=== PATIENT | female | born 1950 | race Caucasian/White ===

== ENCOUNTER → 2018-01-30 | Outpatient (CLI) | payer MEDICARE ==
[~2018-01-30] MED LIST: AMLO1CAP10 PO; ATOR-2 PO; BUPR300T4 PO; CALCIUM PO; CHOL2000 PO; HYDR25TA6 PO; JUICE PLUS PO; LACT1CAP43 PO; MULT-308 PO; NORCO PO; TEMA15CA PO
[2018-01-30 11:41] LABS: MICROSCOPIC NOT IND
[2018-01-30 11:44] LABS: CULTURE INDICATED? NO
[2018-01-30 11:45] LABS: BASOPHILS # (AUTO) 0.04 x10^3/uL (0-0.1); BASOPHILS % (AUTO) 1 % (0-1); EOSINOPHILS # (AUTO) 0.19 x10^3/uL (0-0.4); EOSINOPHILS % (AUTO) 4 % (1-7); LYMPHOCYTES # (AUTO) 1.36 x10^3/uL (1-3.4); LYMPHOCYTES % (AUTO) 25 % (22-44); MD NO; MEAN CORPUSCULAR HEMOGLOBIN 31.4 pg (27.0-34.8); MEAN CORPUSCULAR HGB CONC 34.2 g/dL (32.4-35.8); MEAN CORPUSCULAR VOLUME 91.7 fL (80-100); MEAN PLATELET VOLUME 7.9 fL (7.4-10.4); MONOCYTES # (AUTO) 0.56 x10^3/uL (0.2-0.8); MONOCYTES % (AUTO) 11 % (2-9); NEUTROPHILS % (AUTO) 60 % (42-75); PLATELET COUNT 332 x10^3/uL (130-400); RED BLOOD COUNT 4.83 x10^6/uL (3.82-5.3); RED CELL DISTRIBUTION WIDTH 13.1 % (9.6-15.2)
[2018-01-30 11:53] LABS: INTERNATIONAL NORMALIZED RATIO 0.96 (0.93-1.1)
[2018-01-30 11:58] LABS: CALCIUM 9.3 mg/dL (8.5-10.1); CHLORIDE 107 mmol/L (98-107)
[2018-01-30 12:04] LABS: ALANINE AMINOTRANSFERASE 40 U/L (12-78); ALBUMIN 4.3 g/dL (3.4-5.0); ALKALINE PHOSPHATASE 94 U/L (45-117); ANION GAP 9 mmol/L (5-15); BILIRUBIN,TOTAL 0.9 mg/dL (0.2-1.0); CREATININE 0.64 mg/dL (0.55-1.02); TOTAL PROTEIN 7.8 g/dL (6.4-8.2)
== END | disposition home or self-care (01) ==
LOC: STAR 10:27
PROVIDERS: ATTEND Neurological Surgery
DX: Z01.818 Encounter for other preprocedural examination (principal); I51.7 Cardiomegaly; M43.16 Spondylolisthesis, lumbar region; M48.062 Spinal stenosis, lumbar region with neurogenic claudication
CPT/HCPCS: 36415; 71046; 80053; 81003; 85025; 85610; 85730; 93005

== ENCOUNTER 2018-02-05 07:24 | Inpatient (IN) | payer MEDICARE, OTHER ==
[~2018-02-05] VITALS: Ht 157.5 cm; Wt 72.4 kg
[~2018-02-05 07:24] MED LIST changes: +BACITRACIN 50,000 UNIT ONE; +BUPIVACAINE/PF 0.25% ONE; +EPINEPHRINE 1 MG/ML, 1ML ONE; +SUFentanil 50 MCG/ML, 2ML ONE; +THROMBIN 5,000 UNIT VIAL TP ONE
[2018-02-05] MEDS ORDERED: LACTATED RINGERS 1,000 ML IV SCH (08:03)
[2018-02-05 08:07] VITALS: BP 139/77
[2018-02-05] MEDS ORDERED: METOCLOPRAMIDE 10MG TABLET ONE (08:18)
[2018-02-05] MEDS ORDERED: GABAPENTIN 300 MG CAPSULE ONE (08:18)
[2018-02-05] MEDS ORDERED: FAMOTIDINE 20 MG TABLET ONE (08:19)
[2018-02-05] MEDS ORDERED: DIAZEPAM 5 MG TABLET ONE (08:19)
[2018-02-05] MEDS ORDERED: ACETAMINOPHEN 500 MG TABLET ONE (08:20)
[2018-02-05] MEDS ORDERED: MIDAZOLAM 1 MG/ML, 2ML ONE (08:28)
[2018-02-05] MEDS ORDERED: FENTANYL PF 250 MCG/5ML ONE (08:28)
[2018-02-05] MEDS ORDERED: METOCLOPRAMIDE 5 MG/ML, 2ML IVPush ONE (08:30)
[2018-02-05] MEDS ORDERED: GABAPENTIN 300 MG CAPSULE PO ONE (08:30)
[2018-02-05] MEDS ORDERED: FAMOTIDINE 20 MG TABLET PO ONE (08:30)
[2018-02-05] MEDS ORDERED: DIAZEPAM 5 MG TABLET PO ONE (08:30)
[2018-02-05] MEDS ORDERED: LIDOCAINE-MPF 1%, 2ML INFIL ONE (08:30)
[2018-02-05] MEDS ORDERED: ACETAMINOPHEN 500 MG TABLET PO ONE (08:30)
[2018-02-05] MEDS ORDERED: EPHEDRINE 50 MG/ML, 1ML ONE (09:24)
[2018-02-05] MEDS ORDERED: SUCCINYLCHOLINE 20 MG/ML, 10ML ONE (09:24)
[2018-02-05] MEDS ORDERED: DEXAMETHASONE 4 MG/ML, 1ML ONE (09:24)
[2018-02-05] MEDS ORDERED: CEFAZOLIN 1,000 MG ONE (09:24)
[2018-02-05] MEDS ORDERED: KETAMINE 100 MG/ML, 5ML ONE (09:24)
[2018-02-05] MEDS ORDERED: PROPOFOL 10 MG/ML, 20ML ONE (09:24)
[2018-02-05] MEDS ORDERED: ROCURONIUM 10MG/ML,5ML ONE (09:24)
[2018-02-05] MEDS ORDERED: MORPHINE SULFATE 4 MG/ML, 1ML IVPush PRN (10:30)
[2018-02-05] MEDS ORDERED: KETOROLAC 30 MG/1 ML IV PRN (10:30)
[2018-02-05] MEDS ORDERED: OXYcodone 5 MG/5 ML ORAL.SOL UDC PO PRN (10:30)
[2018-02-05] MEDS ORDERED: ALBUTEROL SULFATE 2.5 MG/3 ML NPPB PRN (10:30)
[2018-02-05] MEDS ORDERED: PROMETHAZINE 25 MG/ML, 1ML IV PRN (10:30)
[2018-02-05] MEDS ORDERED: ONDANSETRON ODT 8 MG PO PRN (10:30)
[2018-02-05] MEDS ORDERED: hydrALAzine 20 MG/ML, 1ML IV PRN (10:30)
[2018-02-05] MEDS ORDERED: DIAZEPAM 5 MG/ML, 2ML IVPush PRN (10:30)
[2018-02-05] MEDS ORDERED: FENTANYL PF 100 MCG/2ML ONE (11:25)
[2018-02-05] MEDS ORDERED: OXYcodone 5 MG/5 ML ORAL.SOL UDC ONE (11:25)
[2018-02-05] MEDS ORDERED: DIPHENHYDRAMINE 50 MG/ML, 1ML IVPush PRN (11:30)
[2018-02-05] MEDS ORDERED: PHARMACY MAY ADJ FOR RENAL FX MC PRN (11:30)
[2018-02-05] MEDS ORDERED: morphine SULFATE 10 MG/ML, 1ML IVPush PRN (11:30)
[2018-02-05] MEDS ORDERED: MAGNESIUM HYDROXIDE 8%, 30ML UDC PO PRN (11:30)
[2018-02-05] MEDS ORDERED: PROMETHAZINE 25 MG/ML, 1ML IM PRN (11:30)
[2018-02-05] MEDS ORDERED: SENNA/DOCUSATE TABLET PO PRN (11:30)
[2018-02-05] MEDS ORDERED: DIPHENHYDRAMINE 50 MG CAPSULE PO PRN (11:30)
[2018-02-05] MEDS ORDERED: ONDANSETRON 2MG/ML, 2ML IVPush PRN (11:30)
[2018-02-05] MEDS ORDERED: LABETALOL 5MG/ML, 20ML IVPush PRN (11:30)
[2018-02-05] MEDS ORDERED: METHOCARBAMOL 750 MG TABLET PO PRN (11:30)
[2018-02-05] MEDS ORDERED: HYDROcodone/APAP 5/325 TABLET PO PRN (11:30)
[2018-02-05] MEDS ORDERED: BISACODYL 10 MG SUPP PR PRN (11:30)
[2018-02-05] MEDS: FENTANYL PF 100 MCG/2ML IV PRN ×2 (11:39→12:10)
[2018-02-05 12:30] VITALS: BP 102/59
[2018-02-05 14:00] VITALS: BP 101/72
[2018-02-05] MEDS: CEFAZOLIN 1,000 MG in SODIUM CHLORIDE 0.9% 50 ML IVPB SCH (17:45)
[2018-02-05 19:36] VITALS: BP 120/74
[2018-02-05] MEDS: ATORVASTATIN 80 MG TABLET PO SCH (19:38)
[2018-02-05] MEDS: OXYcodone/APAP 5/325MG TABLET PO PRN (19:38)
[2018-02-05] MEDS: ZOLPIDEM 5MG TABLET PO PRN (22:57)
[2018-02-05 23:03] VITALS: BP 100/61
[2018-02-06] MEDS: CEFAZOLIN 1,000 MG in SODIUM CHLORIDE 0.9% 50 ML IVPB SCH (01:14)
[2018-02-06] MEDS: OXYcodone/APAP 5/325MG TABLET PO PRN ×4 (02:10→21:52)
[2018-02-06 04:30] VITALS: BP 109/65
[2018-02-06 05:04] LABS: BASOPHILS # (AUTO) 0.02 x10^3/uL (0-0.1); BASOPHILS % (AUTO) 0 % (0-1); EOSINOPHILS % (AUTO) 0 % (1-7); LYMPHOCYTES % (AUTO) 9 % (22-44); MD NO; MEAN CORPUSCULAR HEMOGLOBIN 31.5 pg (27.0-34.8); MEAN CORPUSCULAR HGB CONC 33.5 g/dL (32.4-35.8); MEAN CORPUSCULAR VOLUME 93.9 fL (80-100); MONOCYTES # (AUTO) 0.83 x10^3/uL (0.2-0.8); MONOCYTES % (AUTO) 10 % (2-9); NEUTROPHILS # (AUTO) 7.04 x10^3/uL (1.8-6.8); NEUTROPHILS % (AUTO) 81 % (42-75); PLATELET COUNT 249 x10^3/uL (130-400); RED BLOOD COUNT 3.82 x10^6/uL (3.82-5.3); RED CELL DISTRIBUTION WIDTH 12.7 % (9.6-15.2)
[2018-02-06 05:26] LABS: CHLORIDE 109 mmol/L (98-107)
[2018-02-06] MEDS: ENOXAPARIN 40 MG/0.4 ML SQ SCH ×2 (05:56→23:53)
[2018-02-06 06:18] LABS: ANION GAP 13 mmol/L (5-15); CALCIUM 9.5 mg/dL (8.5-10.1); CREATININE 0.75 mg/dL (0.55-1.02)
[2018-02-06 09:00] VITALS: BP 106/66
[2018-02-06] MEDS ORDERED: HYDROCHLOROTHIAZIDE 25 MG TABLET PO SCH (09:00)
[2018-02-06] MEDS ORDERED: BUPROPION SR 150 MG TABLET PO SCH (09:00)
[2018-02-06] MEDS ORDERED: TEMAZEPAM 15 MG CAPSULE PO SCH (09:00)
[2018-02-06] MEDS ORDERED: TEMPLATE NON-FORMULARY MED. (Bupropion Hcl** (Bupropion Xl**) 300 MG) PO SCH (09:00)
[2018-02-06] MEDS ORDERED: BENAZEPRIL 20 MG TABLET PO SCH (09:00)
[2018-02-06] MEDS: AMLODIPINE 5 MG TABLET PO SCH ×2 (09:15→20:34)
[2018-02-06] MEDS: BUPROPION SR 150 MG TABLET PO SCH (09:17)
[2018-02-06 14:01] VITALS: BP 108/61
[2018-02-06 14:03] VITALS: BP 134/70
[2018-02-06 20:08] VITALS: BP 134/71
[2018-02-06] MEDS: ATORVASTATIN 80 MG TABLET PO SCH (20:34)
[2018-02-06] MEDS: ZOLPIDEM 5MG TABLET PO PRN (23:44)
[2018-02-07 04:48] VITALS: BP 117/54
[2018-02-07 05:13] LABS: BASOPHILS # (AUTO) 0.02 x10^3/uL (0-0.1); BASOPHILS % (AUTO) 0 % (0-1); EOSINOPHILS % (AUTO) 3 % (1-7); LYMPHOCYTES % (AUTO) 22 % (22-44); MD NO; MEAN CORPUSCULAR HEMOGLOBIN 31.9 pg (27.0-34.8); MEAN CORPUSCULAR HGB CONC 34.3 g/dL (32.4-35.8); MEAN CORPUSCULAR VOLUME 93.1 fL (80-100); MEAN PLATELET VOLUME 8.5 fL (7.4-10.4); MONOCYTES % (AUTO) 13 % (2-9); NEUTROPHILS # (AUTO) 4.46 x10^3/uL (1.8-6.8); NEUTROPHILS % (AUTO) 62 % (42-75); PLATELET COUNT 235 x10^3/uL (130-400); RED BLOOD COUNT 3.75 x10^6/uL (3.82-5.3); RED CELL DISTRIBUTION WIDTH 12.6 % (9.6-15.2)
[2018-02-07 05:22] LABS: ANION GAP 10 mmol/L (5-15); CALCIUM 8.2 mg/dL (8.5-10.1); CHLORIDE 107 mmol/L (98-107)
[2018-02-07 05:24] LABS: CREATININE 0.51 mg/dL (0.55-1.02)
[2018-02-07] MEDS ORDERED: VANCOMYCIN 1,000 MG ONE (06:21)
[2018-02-07] MEDS ORDERED: EPINEPHRINE 1 MG/ML, 1ML ONE (06:21)
[2018-02-07] MEDS ORDERED: BUPIVACAINE/PF 0.25% ONE (06:21)
[2018-02-07] MEDS ORDERED: BACITRACIN 50,000 UNIT ONE (06:21)
[2018-02-07] MEDS ORDERED: THROMBIN 5,000 UNIT VIAL TP ONE (06:21)
[2018-02-07 08:00] VITALS: BP 118/76
[2018-02-07] MEDS ORDERED: MIDAZOLAM 1 MG/ML, 2ML ONE (08:05)
[2018-02-07] MEDS ORDERED: FENTANYL PF 250 MCG/5ML ONE (08:05)
[2018-02-07] MEDS ORDERED: ROCURONIUM 10MG/ML,5ML ONE (08:06)
[2018-02-07] MEDS ORDERED: PROPOFOL 10 MG/ML, 20ML ONE (08:07)
[2018-02-07] MEDS ORDERED: WATER-INJECTION,STERILE 10 ML IV ONE (08:08)
[2018-02-07] MEDS ORDERED: CEFAZOLIN 1,000 MG ONE ×2 (08:08)
[2018-02-07] MEDS ORDERED: GLYCOPYRROLATE 0.4 MG/2 ML, 2ML ONE (08:09)
[2018-02-07] MEDS ORDERED: NEOSTIGMINE 1 MG/ML, 10ML ONE (08:09)
[2018-02-07] MEDS ORDERED: DEXAMETHASONE 4 MG/ML, 1ML ONE ×2 (08:10)
[2018-02-07] MEDS ORDERED: PROPOFOL 50 ML ONE ×2 (08:11→10:04)
[2018-02-07] MEDS ORDERED: GABAPENTIN 300 MG CAPSULE PO ONE (08:30)
[2018-02-07] MEDS ORDERED: OxyconTIN ER 10 MG TAB.ER PO ONE (08:30)
[2018-02-07] MEDS ORDERED: ACETAMINOPHEN 500 MG TABLET PO ONE (08:30)
[2018-02-07] MEDS: AMLODIPINE 5 MG TABLET PO SCH ×2 (08:42→20:18)
[2018-02-07] MEDS: BUPROPION SR 150 MG TABLET PO SCH (08:42)
[2018-02-07] MEDS ORDERED: ONDANSETRON ODT 8 MG ONE (09:13)
[2018-02-07] MEDS ORDERED: PROMETHAZINE 25 MG/ML, 1ML IV PRN (09:30)
[2018-02-07] MEDS ORDERED: HYDROmorphone 2 MG/ML, 1ML IV PRN (09:30)
[2018-02-07] MEDS ORDERED: LABETALOL 5MG/ML, 20ML IV PRN (09:30)
[2018-02-07] MEDS ORDERED: MORPHINE SULFATE 4 MG/ML, 1ML IVPush PRN (09:30)
[2018-02-07] MEDS ORDERED: PROMETHAZINE 12.5 MG SUPP PR PRN (09:30)
[2018-02-07] MEDS ORDERED: DIAZEPAM 5 MG/ML, 2ML IVPush PRN (09:30)
[2018-02-07] MEDS ORDERED: ONDANSETRON ODT 8 MG PO PRN (09:30)
[2018-02-07] MEDS ORDERED: MEPERIDINE/PF 25MG/0.5ML IVPush PRN (09:30)
[2018-02-07] MEDS ORDERED: FENTANYL PF 100 MCG/2ML IV PRN (09:30)
[2018-02-07] MEDS ORDERED: PROMETHAZINE 25 MG SUPP PR PRN (09:30)
[2018-02-07] MEDS ORDERED: OXYcodone 5 MG/5 ML ORAL.SOL UDC PO PRN (09:30)
[2018-02-07] MEDS ORDERED: hydrALAzine 20 MG/ML, 1ML IV PRN (09:30)
[2018-02-07] MEDS ORDERED: MEPERIDINE/PF 100 MG/ML ONE (10:03)
[2018-02-07] MEDS ORDERED: FENTANYL PF 100 MCG/2ML ONE (12:21)
[2018-02-07] MEDS ORDERED: OXYcodone 5 MG/5 ML ORAL.SOL UDC ONE (12:21)
[2018-02-07 14:00] VITALS: BP 105/72
[2018-02-07] MEDS: OXYcodone/APAP 5/325MG TABLET PO PRN ×2 (17:08→21:08)
[2018-02-07 20:00] VITALS: BP 99/61
[2018-02-07] MEDS: ATORVASTATIN 80 MG TABLET PO SCH (20:18)
[2018-02-08 00:10] VITALS: BP 117/60
[2018-02-08] MEDS: OXYcodone/APAP 5/325MG TABLET PO PRN ×6 (01:29→21:31)
[2018-02-08 02:00] VITALS: BP 109/66
[2018-02-08 04:00] VITALS: BP 104/64
[2018-02-08 05:55] LABS: BASOPHILS # (AUTO) 0.02 x10^3/uL (0-0.1); BASOPHILS % (AUTO) 0 % (0-1); EOSINOPHILS # (AUTO) 0.02 x10^3/uL (0-0.4); EOSINOPHILS % (AUTO) 0 % (1-7); LYMPHOCYTES # (AUTO) 1.18 x10^3/uL (1-3.4); LYMPHOCYTES % (AUTO) 14 % (22-44); MD NO; MEAN CORPUSCULAR HEMOGLOBIN 31.3 pg (27.0-34.8); MEAN CORPUSCULAR HGB CONC 33.7 g/dL (32.4-35.8); MEAN CORPUSCULAR VOLUME 92.8 fL (80-100); MEAN PLATELET VOLUME 8.2 fL (7.4-10.4); MONOCYTES # (AUTO) 1.24 x10^3/uL (0.2-0.8); MONOCYTES % (AUTO) 15 % (2-9); NEUTROPHILS # (AUTO) 6.02 x10^3/uL (1.8-6.8); NEUTROPHILS % (AUTO) 71 % (42-75); PLATELET COUNT 236 x10^3/uL (130-400); RED BLOOD COUNT 3.39 x10^6/uL (3.82-5.3); RED CELL DISTRIBUTION WIDTH 12.5 % (9.6-15.2)
[2018-02-08 06:10] LABS: CHLORIDE 104 mmol/L (98-107)
[2018-02-08 07:01] LABS: ANION GAP 9 mmol/L (5-15); CALCIUM 8.5 mg/dL (8.5-10.1)
[2018-02-08 07:50] VITALS: BP 105/58
[2018-02-08] MEDS: AMLODIPINE 5 MG TABLET PO SCH ×2 (09:10→21:31)
[2018-02-08] MEDS: BUPROPION SR 150 MG TABLET PO SCH (09:10)
[2018-02-08 12:21] VITALS: BP 99/57
[2018-02-08 19:10] VITALS: BP 116/74
[2018-02-08] MEDS: ATORVASTATIN 80 MG TABLET PO SCH (21:32)
[2018-02-08] MEDS: ZOLPIDEM 5MG TABLET PO PRN (21:34)
[2018-02-09 01:50] VITALS: BP 116/67
[2018-02-09] MEDS: OXYcodone/APAP 5/325MG TABLET PO PRN ×4 (02:12→15:38)
[2018-02-09 05:25] LABS: BASOPHILS # (AUTO) 0.03 x10^3/uL (0-0.1); BASOPHILS % (AUTO) 0 % (0-1); EOSINOPHILS # (AUTO) 0.24 x10^3/uL (0-0.4); EOSINOPHILS % (AUTO) 3 % (1-7); LYMPHOCYTES # (AUTO) 1.48 x10^3/uL (1-3.4); LYMPHOCYTES % (AUTO) 17 % (22-44); MD NO; MEAN CORPUSCULAR HEMOGLOBIN 31.3 pg (27.0-34.8); MEAN CORPUSCULAR HGB CONC 33.6 g/dL (32.4-35.8); MEAN CORPUSCULAR VOLUME 93.1 fL (80-100); MEAN PLATELET VOLUME 8.3 fL (7.4-10.4); MONOCYTES # (AUTO) 1.27 x10^3/uL (0.2-0.8); MONOCYTES % (AUTO) 15 % (2-9); NEUTROPHILS # (AUTO) 5.73 x10^3/uL (1.8-6.8); NEUTROPHILS % (AUTO) 65 % (42-75); PLATELET COUNT 261 x10^3/uL (130-400); RED BLOOD COUNT 3.43 x10^6/uL (3.82-5.3)
[2018-02-09 05:32] LABS: CHLORIDE 103 mmol/L (98-107)
[2018-02-09 05:41] LABS: ANION GAP 8 mmol/L (5-15); CALCIUM 8.3 mg/dL (8.5-10.1); CREATININE 0.43 mg/dL (0.55-1.02)
[2018-02-09] MEDS: ENOXAPARIN 40 MG/0.4 ML SQ SCH (06:09)
[2018-02-09 07:16] VITALS: BP 115/71
[2018-02-09] MEDS ORDERED: METH750T87 PO (09:53)
[2018-02-09] MEDS ORDERED: OXYC-302 PO (09:53)
[2018-02-09] MEDS: AMLODIPINE 5 MG TABLET PO SCH (12:03)
[2018-02-09] MEDS: BUPROPION SR 150 MG TABLET PO SCH (12:03)
[2018-02-09 13:41] VITALS: BP 107/65
== END 2018-02-09 16:50 | DRG 454 ==
LOC: ORIP 07:24 → 4NOR 12:29
PROVIDERS: ADMIT Neurological Surgery; ATTEND Neurological Surgery
PROC: 0SG00A0 Fusion of Lumbar Vertebral Joint with Interbody Fusion Device, Anterior Approach, Anterior Column, Open Approach (ICD-10-PCS; 2018-02-05)
PROC: 4A11X4G Monitoring of Peripheral Nervous Electrical Activity, Intraoperative, External Approach (ICD-10-PCS; 2018-02-05)
PROC: 0QB00ZZ Excision of Lumbar Vertebra, Open Approach (ICD-10-PCS; 2018-02-05)
PROC: 0SB20ZZ Excision of Lumbar Vertebral Disc, Open Approach (ICD-10-PCS; principal; 2018-02-05 09:30)
PROC: 0SG0071 Fusion of Lumbar Vertebral Joint with Autologous Tissue Substitute, Posterior Approach, Posterior Column, Open Approach (ICD-10-PCS; 2018-02-07)
PROC: 4A11X4G Monitoring of Peripheral Nervous Electrical Activity, Intraoperative, External Approach (ICD-10-PCS; 2018-02-07)
DX: M48.062 Spinal stenosis, lumbar region with neurogenic claudication (principal); G95.20 Unspecified cord compression; M43.16 Spondylolisthesis, lumbar region; M51.36 Other intervertebral disc degeneration, lumbar region; M25.78 Osteophyte, vertebrae; I10 Essential (primary) hypertension; M19.90 Unspecified osteoarthritis, unspecified site; F32.9 Major depressive disorder, single episode, unspecified; Z87.891 Personal history of nicotine dependence
CPT/HCPCS: 36415; 72100; 72131; 80048; 85025; C1713; C1729; C1776; J0171; J0690; J1100; J1650; J2250; J2405; J2704; J2710; J3010; J3370; J3490; C1762; J0330; J2175; J2270; J7120